=== PATIENT | female | born 1960 | race American Indian/Alaskan Native ===

== ENCOUNTER 2017-01-26 06:49 | Day surgery (SDC) | payer BC, OTHER ==
--- NOTE | 2017-01-26 09:20 | History and Physical Report ---
History of Present Illness Date of examination: 01/26/17 Chief complaint: lt. thyroid mass Medications and Allergies Allergies Allergy/AdvReac Type Severity Reaction Status Date / Time No Known Allergies Allergy Unverified 10/25/13 09:26 Home Medications Medication Instructions Recorded Confirmed Last Taken Type Cholecalciferol (Vitamin D3) 2,000 unit PO QDAY 01/26/17 01/26/17 01/25/17 History [Vitamin D3 2,000 unit] Chromium Amino Acid Chelate 400 mcg PO DAILY 01/26/17 01/26/17 01/25/17 History [Chromium] Spironolactone [Aldactone] 25 mg PO QDAY 01/26/17 01/26/17 01/25/17 History metFORMIN [Glucophage] 500 mg PO BID 01/26/17 01/26/17 01/25/17 History Exam Vital Signs Temp Pulse Resp BP Pulse Ox 98.1 F 60 18 123/69 96 01/26/17 07:19 01/26/17 07:19 01/26/17 07:19 01/26/17 07:19 01/26/17 07:19
--- NOTE | 2017-01-26 09:40 | Procedure Note ---
Date of procedure: 01/26/17 Pre-op diagnosis: lt. thyroid mass Post-op diagnosis: same
--- NOTE | 2017-01-26 09:54 | Procedure Note ---
Date of procedure: 01/26/17 Pre-op diagnosis: lt thyroid mass Post-op diagnosis: same Procedure: thyroid bx Findings: thyroid tissue Anesthesia: local Surgeon: GAVINO URENA Estimated blood loss: none Pathology: list (lt. thyroid tissue) Specimen disposition: to lab Condition: stable Disposition: observation
--- NOTE | 2017-01-26 09:57 | Ultrasound Report ---
Ultrasound guided left thyroid biopsy: Patient presents with a history of an enlarging left thyroid mass. Previous biopsy in 2015. Imaging of the thyroid lobe demonstrates a heterogeneous mass occupying the lower 75% of the thyroid lobe. The mass measures approximately 2.5 x 3 cm in size. It is inhomogeneous and slightly hypoechoic. No calcifications. The skin was cleansed and 1% lidocaine used for local anesthesia. Under ultrasound guidance samples were obtained using a 25-gauge needle for aspiration followed by biopsy with a Rotex needle. The attending pathologist indicated that adequate sampling had been obtained. No complications were encountered. The patient was sent to observation prior to discharge.
[2017-01-26 10:03] VITALS: BP 111/63
== END 2017-01-26 09:55 | disposition home or self-care (01) ==
LOC: CATHLABREC 06:49 → EDSTATUS 07:30 → CATHLABREC 09:55
PROVIDERS: ATTEND Specialist
DX: E04.1 Nontoxic single thyroid nodule (principal)
CPT/HCPCS: 60100; 76942; 88112; 88172; 88173; 88305